=== PATIENT | male | born 1985 | race Two or more races ===

== ENCOUNTER 2025-03-14 09:54 | Emergency (ER) | payer OTHER ==
[~2025-03-14] VITALS: Ht 167.6 cm; Wt 86.4 kg
[2025-03-14 10:18] VITALS: TEMP 98.6
[2025-03-14 14:00] VITALS: BP 119/57; PULSE 78; RESP 16; O2SAT 100
== END 2025-03-14 14:11 | disposition home or self-care (01) ==
LOC: EMS 09:54
DX: R10.9 Unspecified abdominal pain (principal)
CPT/HCPCS: 74176; 99284; Z7502

== ENCOUNTER 2025-03-16 11:04 | Inpatient (IN) | payer OTHER ==
[~2025-03-16] VITALS: Ht 170.2 cm; Wt 88.6 kg
[2025-03-16 11:48] LABS: PLATELET COUNT (AUTO) 209 K/uL (150-450); RED BLOOD CELL COUNT(AUTO) 5.26 MIL/uL (4.50-5.90); RED CELL DISTRIBUTION WIDTH 13.9 % (11.5-14.5); WHITE BLOOD COUNT (AUTO) 5.5 K/uL (4.5-11.0)
[2025-03-16 11:56] LABS: CALCIUM, TOTAL 8.9 mg/dL (8.8-10.5); CREATININE 1.02 mg/dL (0.60-1.30); GLOMERULAR FILTR. RATE CALC > 60 mL/min (>60); GLUCOSE,RANDOM 110 mg/dL (70-110); SODIUM SERUM 137 mmol/L (136-145); UREA NITROGEN, BLOOD 15 mg/dL (7-18)
[2025-03-16 12:04] LABS: LACTIC ACID 1.0 mmol/L (0.4-2.0); TROPONIN I-HIGH SENSITIVITY 6 ng/L (<76)
[2025-03-16 12:16] LABS: APPEARANCE,URINE CLEAR (CLEAR); GLUCOSE, URINE (UA) NEGATIVE (NEGATIVE); LEUKOCYTE ESTERASE ,URINE MODERATE (NEGATIVE); NITRATE,URINE NEGATIVE (NEGATIVE); OCCULT BLOOD,URINE NEGATIVE (NEGATIVE); SPECIFIC GRAVITIY, URINE 1.036 (1.003-1.030)
[2025-03-16] MEDS: AZITHROMYCIN 500 MG TABLET PO ONE (13:15)
[2025-03-16] MEDS: CefTRIAXone 1 GM/DEXTROSE 50 ML IV ONE (13:15)
[2025-03-16] MEDS ORDERED: ZOLPIDEM TARTRATE 5 MG TABLET PO PRN (14:15)
[2025-03-16] MEDS ORDERED: HYDROCODONE/ACETAMINOPHEN 5-325 MG TABLET PO PRN (14:15)
[2025-03-16] MEDS ORDERED: BISACODYL 10 MG RECTAL RECTAL SUPPOSITORY PR PRN (14:15)
[2025-03-16] MEDS ORDERED: MAGNESIUM HYDROXIDE SUSPENSION 30 ML UDCUP PO PRN (14:15)
[2025-03-16] MEDS ORDERED: ACETAMINOPHEN 325 MG TABLET PO PRN (14:15)
[2025-03-16] MEDS ORDERED: MORPHINE SULFATE 4 MG/ML SYRINGE IVP PRN (14:15)
[2025-03-16 15:52] VITALS: BP 115/75; PULSE 50; RESP 19; TEMP 98.1; O2SAT 98
[2025-03-16] MEDS: HEPARIN SODIUM,PORCINE 5,000 UNITS/ML VIAL SQ SCH (16:00)
[2025-03-16 20:00] VITALS: BP 110/74; PULSE 69; RESP 18; TEMP 97.7; O2SAT 97
[2025-03-16] MEDS: DOCUSATE SODIUM 100 MG CAPSULE PO SCH (20:21)
[2025-03-17 04:00] VITALS: BP 110/68; PULSE 54; RESP 18; TEMP 97.7; O2SAT 100
[2025-03-17 08:08] VITALS: BP 102/74; PULSE 53; RESP 18; TEMP 97.9; O2SAT 97
[2025-03-17] MEDS: PANTOPRAZOLE SODIUM 40 MG DR TABLET PO SCH (08:42)
[2025-03-17] MEDS ORDERED: SODIUM CHLORIDE 0.9% 250 ML IV ONE (14:09)
[2025-03-17] MEDS: CefTRIAXone 1 GM/DEXTROSE 50 ML IV SCH (14:22)
[2025-03-17 19:41] VITALS: BP 111/73; PULSE 62; RESP 17; TEMP 97.9; O2SAT 97
[2025-03-18 04:29] VITALS: BP 100/65; PULSE 55; RESP 17; TEMP 97.9; O2SAT 97
[2025-03-18 08:21] VITALS: BP 106/66; PULSE 55; RESP 18; TEMP 97.9; O2SAT 98
[2025-03-18] MEDS ORDERED: LEVO-72 PO (10:45)
== END 2025-03-18 17:01 | DRG 690 ==
LOC: EMS 11:04 → EDH 12:58 → 6N 15:05
PROVIDERS: ADMIT Internal Medicine; ATTEND Internal Medicine
DX: N39.0 Urinary tract infection, site not specified (principal); N20.0 Calculus of kidney; I10 Essential (primary) hypertension
CPT/HCPCS: 76770; 76870; 80048; 81001; 83605; 83690; 84484; 85025; 87077; 87081; 87086; 87186; 87491; 87591; 96365; 99285; J0696; J1644; J7050